=== PATIENT | female | born 1980 ===

== ENCOUNTER 2016-09-29 07:57 | Day surgery (SDC) | payer BC, OTHER ==
[2016-05-28 08:06] VITALS: BMI 21.0
[2016-09-29] MEDS ORDERED: Lactated Ringer's 1,000 ML IV ONE ×2 (08:55→13:00)
[2016-09-29] MEDS ORDERED: Propofol 10 mg/ml Inj (20 ML) ONE (09:43)
[2016-09-29] MEDS ORDERED: Rocuronium 10 mg/ml (5 ml) ONE (09:44)
[2016-09-29] MEDS ORDERED: Midazolam 2 MG/2 ML VIAL ONE (09:44)
[2016-09-29] MEDS ORDERED: Neostigmine Methylsulfate 2 MG/2 ML ML IV ONE (09:45)
[2016-09-29] MEDS ORDERED: Bupivacaine 0.5% Inj(30mL) ONE (09:57)
[2016-09-29] MEDS ORDERED: Lidocaine 1% Inj (20ml) ONE (09:57)
[2016-09-29] MEDS ORDERED: Dexamethasone 4 mg/1 ml ONE (10:21)
[2016-09-29] MEDS ORDERED: Bupivacaine 0.5% 50 ML IJ ONE (10:25)
[2016-09-29] MEDS ORDERED: Lactated Ringer's 1,000 ML IV SCH (11:07)
[2016-09-29] MEDS ORDERED: Oxycodone/Acetaminophen 5/325 mg Tab PO PRN (11:10)
[2016-09-29] MEDS ORDERED: HYDROmorphone 0.5 mg/0.5 ml ISec ONE (12:48)
[2016-09-29 13:03] VITALS: O2SAT 98
[2016-09-29 13:36] VITALS: RESP 18; TEMP 98.2
[2016-09-29 15:18] VITALS: BP 133/81; PULSE 62
--- NOTE | 2016-09-29 16:17 | PCM.OP ---
Operative Report - Operative Report Date of Surgery/Procedure: 09/29/16 Time of Surgery/Procedure: 10:00 Surgeon: tim Villalobos Anesthesia/Sedation: General Pre-Operative Diagnosis: voluntary sterilization Post-Operative Diagnosis: same Indication for Surgery: permanent contraception Operative Findings: normal uterus tubes and ovaries normal external female genitalia and urethraand cervix normal vagina Procedure/Operation Description: operative laparoscopy. after informed consent was obtained the patient was t taken to the operating room and given general anesthesia prepped and draped in the normal sterile fashion. The patient was placed in a modified litho lithotomy position a weighted speculum was inserted into the vagina the cervix was visualized grasped with a sin single-tooth tenaculum.Cervix was gently dilated and a HUMI uterine manipulator was inserted. Attention was then turned to the umbilicus where Marcaine was infused , a 5 mm incision was made in the abdomen was tented upward and it varies needle was introduced into th the abdominal cavity. Abdomen was insufflated to 15 mmHg a 5 mm trocar was inserted into the abdominal cavity and placement was confirmed with the laparoscope. Attention was then turned to the rightanterior iliac crest approximately 3 minutes centimeters superior Marcaine was infused 5 mm incision was ma made and a 5 mm port was introduced underect visualization. Attention was then turned to the right f it was serially coagulated and then transected. A similar procedure was performed on the l left. Hemostasis was noted on instruments were then removed from the abdomen the incision sites were closed with Dermand Dermabond. All sponge lap needle and instrument counts wer were correct 2 and the patient was taken to [facility] in awake and stable condition Estimated Blood Loss: minimal Complications: none Discharge & Condition: stable
== END 2016-09-29 16:03 | disposition home or self-care (01) ==
LOC: H.OPSURG 07:57
PROVIDERS: ATTEND Obstetrics & Gynecology Gynecology
DX: Z30.2 Encounter for sterilization (principal); D25.9 Leiomyoma of uterus, unspecified
CPT/HCPCS: 58670; J0690; J1100; J1170; J1885; J2001; J2250; J2405; J2704; J2710; J3010; J7030; J7120